=== PATIENT | male | born 1950 | race Caucasian/White ===

== ENCOUNTER → 2023-10-29 14:39 | Outpatient (REF) | payer MEDICARE, OTHER, SELFPAY | LOC: RCS 14:39 | PROVIDERS: ATTENDING PHYSICIAN Nurse Practitioner Family; FAMILY PHYSICIAN Internal Medicine | DX: R42 Dizziness and giddiness (principal); R06.02 Shortness of breath | CPT/HCPCS: 93306 ==

== ENCOUNTER → 2023-12-09 09:14 | Outpatient (REF) | payer MEDICARE, OTHER, SELFPAY | LOC: RCS 09:14 | PROVIDERS: ATTENDING PHYSICIAN Nurse Practitioner Family; FAMILY PHYSICIAN Internal Medicine | DX: R42 Dizziness and giddiness (principal); R06.02 Shortness of breath | CPT/HCPCS: 93017 ==

== ENCOUNTER 2025-07-19 15:18 | Emergency (ER) | payer MEDICARE, OTHER, SELFPAY ==
[2025-07-19 15:27] VITALS: BP 155/82
[2025-07-19 16:04] LABS: Hematocrit 38.3 % (39.0-52.0); Hemoglobin 13.0 g/dL (13.0-18.0); Mean Corp Hgb Conc. 33.9 g/dL (33.0-37.0); Mean Corpuscular Volume 87.6 fL (80.0-94.0); Nucleated Red Blood Cells % 0 % (-); Platelet Count 156 10^3/uL (130-400); Red Cell Dist. Width 13.2 % (11.5-14.5)
[2025-07-19 16:21] LABS: ALT (SGPT) 24 U/L (0-50); AST (SGOT) 29 U/L (17-59); Albumin 4.2 g/dl (3.5-5.0); Alkaline Phosphatase 87 U/L (38-126); Blood Urea Nitrogen 20 mg/dl (9-20); Calcium 9.4 mg/dl (8.4-10.2); Carbon Dioxide 27 mmol/L (22-30); Chloride 105 mmol/L (98-107); Glucose 86 mg/dl (70-99); Potassium 3.8 mmol/L (3.5-5.1); Sodium 137 mmol/L (135-145); Total Protein 6.9 g/dl (6.3-8.2); eGFR > 60.00
[2025-07-19 16:23] VITALS: BP 164/85
[2025-07-19 16:24] LABS: Troponin I < 0.012 ng/ml
[2025-07-19 16:44] VITALS: BMI 25.3
[2025-07-19 18:40] VITALS: BP 167/83
[2025-07-19 19:00] VITALS: BP 147/105
[2025-07-19 19:35] LABS: Troponin I < 0.012 ng/ml
--- NOTE | 2025-07-19 19:59 | ED.GENMED ---
History of Present Illness
General
Chief Complaint: Chest Pain
Source: patient
Time Seen by Provider: 07/19/25 17:14
History of Present Illness
History of Present Illness:
Note:
CHIEF COMPLAINT(S)
Chest pain.
HISTORY OF PRESENT ILLNESS
The patient is a 75-year-old male who presents with a complaint of chest pain, which began approximately three weeks ago. He initially thought the pain was due to a pulled muscle in the chest area. The pain has been intermittent since its onset and
does not appear to be exacerbated by movement. The patient describes the pain as a 'diving pain' located centrally in the chest. Saturday night, the pain lasted for about eight hours, which was more intense than previous episodes. Other episodes
typically last from five minutes to an hour and a half. The patient reports only a mild degree of shortness of breath and denies significant dyspnea during activities such as walking up stairs. He was unable to seek immediate medical attention [place] responsibilities to return home with them. He has not experienced associated symptoms like indigestion. 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
heart attacks.
PAST MEDICAL AND SURGICAL HISTORY
The patient reports a previous episode of a racing heart requiring monitoring.
EXTERNAL RECORDS REVIEWED
A review of previous medical records, including a recent stress test performed approximately eight to nine months ago, is planned.
CHRONIC MEDICAL CONDITIONS SIGNIFICANTLY AFFECTING CARE
The patient has elevated cholesterol and is on medication for depression. No history of diabetes or hypertension was reported.
REVIEW OF SYSTEMS
- Cardiovascular: Reports episodic chest pain, described as a diving pain, lasting from five minutes to eight hours, non-exertional.
- Respiratory: Mild shortness of breath, not significantly limiting activity.
- Gastrointestinal: No association with meals or symptoms of indigestion.
PHYSICAL EXAM
General: Alert, no acute distress.
Skin: Warm, dry.
Head: Normocephalic, atraumatic.
Neck: Supple, trachea midline.
Eyes, Ears, Nose, and Throat: Oral mucosa moist.
Cardiovascular: Regular rhythm without murmurs, normal peripheral perfusion, heart rate 60 beats per minute, lower extremities without edema.
Respiratory: Respirations are non-labored.
Gastrointestinal: Abdomen nondistended, non-tender on exam.
Back: Normal range of motion, normal alignment.
Musculoskeletal: Normal range of motion, normal strength.
Neurological: Alert and oriented to person, place, time, and situation, no focal neurologic deficits observed.
Psychiatric: Cooperative, appropriate mood and affect.
PROBLEM LIST
- Acute: Chest pain
- Chronic: Elevated cholesterol, depressive disorder
PLAN
- Repeat cardiac enzyme test to confirm no myocardial damage.
- Review results of previous stress test from eight to nine months ago.
- Consider an ultrasound of the gallbladder to rule out other causes of pain.
DIFFERENTIAL DIAGNOSIS
The Differential Diagnosis includes, in no particular order and is not limited to:
1. Myocardial ischemia
2. Musculoskeletal pain
3. Aortic dissection
4. Gastroesophageal reflux disease (GERD)
5. Pulmonary embolism
6. Pericarditis
7. Costochondritis
8. Pneumonia
9. Pneumothorax
10. Gallbladder disease
EKG
My independent EKG interpretation is:
- Time of EKG: Not specified
- Rhythm: Sinus bradycardia
- Heart Rate: 57 bpm
- Notable Intervals: First-degree AV block
- [place]: Normal
- Intervals: Normal
- Abnormalities: No acute ischemic changes
Disposition:
SUMMARY OF ENCOUNTER
A 75-year-old male presented with chest pain that occurred three nights ago on Saturday. After assessment, including EKG and lab tests, no ischemic changes were found, and troponin levels were negative twice. A gallbladder right upper quadrant
ultrasound and abdominal imaging, including the inferior vena cava and aorta, were normal. The chest x-ray returned normal results. Given the patients age and the unremarkable findings, a referral to outpatient cardiology for follow-up was made. The
patient was re-evaluated and continued to feel well without further symptoms.
PLAN
The patient will be referred to outpatient cardiology for follow-up to thoroughly investigate the chest pain episode and monitor his cardiac health.
INDEPENDENT REVIEW OF LABS AND INTERPRETATION OF TESTS
- My independent review of the EKG indicates no ischemic changes.
- My independent review of the troponin tests shows two negative results.
- My independent review of the chest x-ray is normal.
- My independent review of the gallbladder right upper quadrant ultrasound is negative.
FOLLOW-UP INSTRUCTIONS
The patient is advised to follow up with outpatient cardiology to further investigate the chest pain and ensure proper cardiac evaluation and monitoring.
MEDICATION RECONCILIATION
No new medications were required or prescribed at this time.
MEDICAL DECISION MAKING
- Complexity of Data Reviewed:
- The differential diagnosis initially considered includes: myocardial ischemia, musculoskeletal pain, aortic dissection, gastroesophageal reflux disease, pulmonary embolism, pericarditis, costochondritis, pneumonia, pneumothorax, and gallbladder
disease.
- Data:
Category 1
- My independent interpretation of tests includes a normal EKG and negative troponin tests.
- My independent interpretation of the chest x-ray and gallbladder ultrasound are both normal.
-Risk:
- Consideration of Admission/Observation: Escalation of care including admission/observation was considered given the complexity and risk of the patients presenting complaint. However, ultimately I feel the patient is safe for outpatient management
with close follow-up. Reasoning: Work-up is reassuring, does not reveal any acute life/organ-threatening processes, patients symptoms are well-controlled upon re-evaluation, re-examination is reassuring, vitals are stable, patient agrees with
discharge, and is reliable for follow-up.
DIAGNOSIS
- Chest pain, unspecified - R07.9
Phy Exam
Physical Exam
Physical Exam:
.
Scores
Heart Score for Chest Pain Patients
STEMI patient?: No
History: Slightly or Non-Suspicious
ECG: Normal
Age: >/= 65 years
Risk Factors: 1 or 2 Risk Factors
Troponin: </= Normal Limit
Heart Score for Chest Pain Patients: 3
Heart Score Risk: 2.5% MACE over next 6 weeks
Course
Orders/Labs/Results
Orders:
Orders
07/19/25 15:19
EKG [Electrocardiogram (*1)] Urgent
Reason for Study: Chest Pain
EKG- Treatment ONCE
07/19/25 15:30
CR Chest - 2 Views Urgent
Comment:
Reason For Exam: cough
07/19/25 15:42
Complete Blood Count/With Diff Urgent
Comprehensive Metabolic Panel Urgent
Troponin I Urgent
07/19/25 17:28
EKG- Treatment ONCE
US Abdomen Complete/Upper Urgent
Comment:
Reason For Exam: epigastric pain
07/19/25 18:40
Electrocardiogram (*1) Urgent
Reason for Study: Chest Pain
07/19/25 18:58
Troponin I Urgent
Abnormal Lab Results
07/19/25
15:42
RBC 4.37 L 10^6/uL
(4.70-6.10)
Hct 38.3 L %
(39.0-52.0)
MPV 10.9 H fL
(7.4-10.4)
Eosinophils % 6.2 H %
(0-6)
07/19/25 15:42
07/19/25 15:42
Vital Signs
Initial and Last Documented VS:
Initial Vital Signs
Temp Pulse Resp BP Pulse Ox
97.7 F 62 18 155/82 97
07/19/25 15:27 07/19/25 15:27 07/19/25 15:27 07/19/25 15:27 07/19/25 15:27
Last Documented Vital Signs
Temp Pulse Resp BP Pulse Ox
97.7 F 51 18 167/83 96
07/19/25 15:27 07/19/25 18:00 07/19/25 18:00 07/19/25 18:40 07/19/25 20:01
*Pulse Oximetry
SaO2: 96
Oxygen Mode of Delivery: Room air
Patient hypoxic: no
*Critical Care Note
Total Time (30-74mins, 75-104mins- exclusive of procedures): Not Applicable
ED Attending Note
-
Portions of this chart may have been created with voice recognition software.� Occasional wrong word or��sound alike� substitutions may have occurred due to the inherent limitations of voice recognition software.
Discharge Plan
Departure
Patient Disposition: Home (Routine Discharge)
Date of Disposition: 07/19/25
Time of Disposition: 19:59
Patient with high blood pressure during this ER visit?: Yes
Discharge Problem:
Atypical chest pain
Instructions: Chest Pain DCA Follow Up, BLOOD PRESSURE
Prescriptions:
No Action
loperamide [Imodium A-D] 2 MG capsule
4 mg PO DAILY
sertraline 100 MG tablet
100 mg PO DAILY
ascorbic acid (vitamin C) [Vitamin C] 500 MG tablet
1,000 mg PO DAILY
trazodone 100 MG tablet
100 mg PO HS
montelukast 10 MG tablet
10 mg PO HS
aripiprazole 5 MG tablet
5 mg PO DAILY
bupropion HCl 150 MG tablet extended release 24 hr
150 mg PO DAILY
Multivitamin Gummies 200 MCG tablet,chewable
200 mcg PO DAILY
albuterol sulfate [Ventolin HFA] 90 MCG/PUFF HFA aerosol inhaler
2 puff inhalation Q4HPRN PRN (Reason: SOB)
cranberry fruit 400 mg Capsule
1,200 mg PO DAILY
cholecalciferol (vitamin D3) [Vitamin D3] 50 mcg (2,000 unit) Tablet
50 mcg PO DAILY
PreserVision AREDS 2,148 mcg-113 mg-45 mg-17.4mg Tablet
2 tab PO BID
Prevagen 1 CAPSULE capsule
1 cap PO DAILY
mupirocin 2 % ointment
1 applic topical BID Qty: 1 0RF
Patient Comments:
patient did nasal ointment this am 04/19/22
tamsulosin [Flomax] 0.4 mg capsule
0.4 mg PO HS Qty: 7 0RF
Patient Comments:
took last HS 04/18/22
Rx Instructions:
begin 3 nights b/f surgery
famotidine [famotidine] 20 mg tablet
20 mg PO HS Qty: 30 0RF
Patient Comments:
for post op
Rx Instructions:
post-op use
GI ppx
oxycodone 5 mg tablet
5 - 10 mg PO Q6HPRN PRN (Reason: 1 tab moderate-2 tabs severe pain) Qty: 30 0RF
Patient Comments:
post op
Rx Instructions:
Dx TKA
ongoing therapy
post-op use
prednisone 10 mg tablet
40 mg PO TAPER Qty: 10 0RF
Rx Instructions:
4 tab(40mg) day 1, 3 tabs(30mg) day 2, 2 tabs(20mg) day3,
1 tab (10mg) day 4, then stop
cyclobenzaprine 5 mg tablet
5 mg PO HS PRN (Reason: muscle spasm) Qty: 10 0RF
Patient Comments:
last took 12/26/21
Rx Instructions:
post-op use
muscle pain/sleep
docosahexaenoic acid-epa 1 CAP capsule
1 cap PO DAILY Qty: 1 0RF
Rx Instructions:
Resume 1 week post-surgery.
acetaminophen [Acetaminophen Extra Strength] 500 mg tablet
1,000 mg PO Q6H Qty: 30 0RF
Rx Instructions:
Do not exceed >4000 mg daily
aspirin 325 mg capsule
325 mg PO DAILY Qty: 30 0RF
Rx Instructions:
Take daily x4 weeks for blood clot prevention.
docusate sodium [Colace] 100 mg capsule
100 mg PO BID Qty: 30 0RF
Rx Instructions:
Take twice a day for constipation prevention.
senna 8.6 mg capsule
17.2 mg PO BID PRN (Reason: constipation) Qty: 30 0RF
Rx Instructions:
Twice daily as needed for constipation unrelieved by Colace.
Hold for loose stools.
Referrals:
Brittney Sahu DO [Family Provider, Internal Medicine]
Activity Restrictions/Additional Instructions:
Please take 81 mg of aspirin a day. Please avoid strenuous or exertional activity until cleared by cardiology. Please see cardiology in the next 48 hours for reevaluation. Return immediately for worsening pain, shortness breath, palpitations,
sweating, nausea, weakness of any kind, numbness, tingling or any other concerns.
Cardiology has been notified and a follow up appointment has been requested. Someone will call you on the next business day to schedule a follow up appointment.
Interventions
Interventions:
*Risk Screen - Suicide Last Done: 07/19/25 15:27
*General Assessment Last Done: 07/19/25 15:27
*Neglect/Abuse Screening Last Done: 07/19/25 15:27
*ED- Fall Risk Assessment Last Done: 07/19/25 16:50
*ED COVID-19 Vaccine History Last Done: 07/19/25 16:50
*ED Influenza Vaccine History Last Done: 07/19/25 16:50
ED- Cardiac Assessment Last Done: 07/19/25 16:50
Discharge Date and Time
Print Language: TELUGU
[2025-07-19 20:13] VITALS: BP 150/89
== END 2025-07-19 20:25 | disposition home or self-care (01) ==
LOC: EMR 15:18
PROVIDERS: EMERGENCY PHYSICIAN Emergency Medicine; FAMILY PHYSICIAN Internal Medicine
DX: R07.89 Other chest pain (principal); E78.00 Pure hypercholesterolemia, unspecified; F32.A Depression, unspecified
CPT/HCPCS: 99284; 71046; 76700; 80053; 84484; 85025; 93005

== ENCOUNTER → 2025-08-12 08:15 | Outpatient (REF) | payer MEDICARE, OTHER, SELFPAY | LOC: HWRCS 08:15 | PROVIDERS: ATTENDING PHYSICIAN Internal Medicine Cardiovascular Disease; FAMILY PHYSICIAN Internal Medicine | DX: R06.02 Shortness of breath (principal) | CPT/HCPCS: 93306 ==

== ENCOUNTER → 2025-08-23 07:43 | Outpatient (REF) | payer MEDICARE, OTHER, SELFPAY | LOC: HWRCS 07:43 | PROVIDERS: ATTENDING PHYSICIAN Internal Medicine Cardiovascular Disease; FAMILY PHYSICIAN Internal Medicine | DX: R07.9 Chest pain, unspecified (principal) | CPT/HCPCS: 78452; 93017; A9500 ==